=== PATIENT | female | born 1965 | race American Indian/Alaskan Native ===

== ENCOUNTER 2017-03-27 08:49 | Outpatient (CLI) | payer BC ==
[2017-03-27 09:24] LABS: Anion Gap 17 mmol/L; Blood Urea Nitrogen 10 mg/dL (7-17); Carbon Dioxide 29 mmol/L (22-30); Chloride 100.6 mmol/L (98-107); Glucose 96 mg/dL (65-100); Sodium 143 mmol/L (137-145)
== END 2017-03-27 08:50 | disposition home or self-care (01) ==
LOC: LAB 08:49
PROVIDERS: ATTEND Internal Medicine
DX: I10 Essential (primary) hypertension (principal); R73.01 Impaired fasting glucose
CPT/HCPCS: 36415; 80048; 83036

== ENCOUNTER 2017-04-21 10:33 | Outpatient (CLI) | payer BC ==
--- NOTE | 2017-04-22 08:10 | Ultrasound Report ---
ULTRASOUND PELVIC COMPLETE ULTRASOUND TRANSVAGINAL HISTORY: Uterine fibroids. COMPARISON: None. TECHNIQUE: Transabdominal and transvaginal ultrasound with color doppler interrogation. The uterus is anteverted and measures 14.4 x 7.7 x 8.3 cm. There is a large complex uterine mass with a submucosal component in the anterior wall measuring 5.8 x 5.5 cm. Subtle internal calcifications are suspected on the transvaginal images. Trace flow on color Doppler. There is also a smaller subserosal fibroid in the anterior, right lateral wall measuring 2.0 x 2.0 cm. The endometrial stripe is difficult to identify secondary to displacement and the fibroids but appears grossly normal. The ovaries are unremarkable. The right ovary measures 3.3 x 1.7 x 1.4 cm. The left ovary measures 3.1 x 1.8 x 2.1 cm. No pelvic fluid collection. IMPRESSION: Uterine fibroid disease as described above.
== END 2017-04-21 10:34 | disposition home or self-care (01) ==
LOC: US 10:33
DX: D25.2 Subserosal leiomyoma of uterus (principal); D25.0 Submucous leiomyoma of uterus
CPT/HCPCS: 76830; 76856

== ENCOUNTER 2017-05-11 12:43 | Outpatient (CLI) | payer BC ==
--- NOTE | 2017-05-11 15:50 | Mammography Report ---
BILATERAL MAMMOGRAM: FINDINGS: The breasts are almost entirely fat (<25% glandular). No mass, distortion, suspicious calcification, or skin change is seen. No interval change compared to prior exam in April 2016. CAD was utilized. IMPRESSION: Negative mammogram. There is no mammographic evidence of malignancy. RECOMMENDATION: Follow-up per ACS guidelines. BI-RADS CATEGORY: 1 = Negative ACR BI-RADS MAMMOGRAPHIC CODES: 0 = Needs additional imaging evaluation; 1 = Negative; 2 = Benign; 3 = Probably benign; 4 = Suspicious; 5 = Malignant; 6 = Known biopsy-proven malignancy COMMENT: 1. Dense breast tissue, i.e., adenosis, fibrocystic changes, etc., may obscure an underlying neoplasm. 2. Approximately 10% of cancers are not detected with mammography. 3. A negative mammography report should not delay biopsy if a clinically suspicious mass is present. COMMENT: Patient follow-up letters are generated in [employer].
== END 2017-05-11 12:44 | disposition home or self-care (01) ==
LOC: MAMMO 12:43
DX: Z12.31 Encounter for screening mammogram for malignant neoplasm of breast (principal)
CPT/HCPCS: 77067; G0202

== ENCOUNTER 2017-10-22 08:57 | Outpatient (CLI) | payer BC ==
[2017-10-22 09:18] LABS: Basophils % (Auto) 0.4 % (0.0-1.8); Eosinophils # (Auto) 0.1 K/mm3 (0.0-0.4); Eosinophils % (Auto) 2.1 % (0.0-4.3); Hematocrit 41.1 % (30.3-42.9); Hemoglobin 13.3 gm/dl (10.1-14.3); Lymphocytes # (Auto) 2.7 K/mm3 (1.2-5.4); Lymphocytes % (Auto) 45.2 % (13.4-35.0); Mean Corpuscular HGB Conc 32 % (30-34); Mean Corpuscular Volume 80 fl (79-97); Monocytes # (Auto) 0.4 K/mm3 (0.0-0.8); Monocytes % (Auto) 6.4 % (0.0-7.3); Platelet Count 299 K/mm3 (140-440); Red Blood Count 5.11 M/mm3 (3.65-5.03); Red Cell Distribution Width 14.7 % (13.2-15.2)
[2017-10-22 09:19] LABS: Mean Corpuscular Hemoglobin 26 pg (28-32)
[2017-10-22 09:41] LABS: Bacteria,Urine 1+ /HPF (Negative); Bilirubin,Urine NEG (Negative); Blood,Urine NEG (Negative); Color,Urine Yellow (Yellow); Mucus,Urine 2+ /HPF; Protein,Urine <15 mg/dL mg/dL (Negative); WBC,Urine < 1.0 /HPF (0.0-6.0)
[2017-10-22 09:48] LABS: Alanine Aminotransferase 16 units/L (7-56); Albumin 4.4 g/dL (3.9-5); BUN/Creatinine Ratio 17; Blood Urea Nitrogen 15 mg/dL (7-17); Calcium 9.1 mg/dL (8.4-10.2); Chol/HDL Ratio 4.05 %; HDL Cholesterol 58 mg/dL (40-59); Hemolysis Index 3; LDL Cholesterol,Direct 155 mg/dL (50-130)
== END 2017-10-22 08:58 | disposition home or self-care (01) ==
LOC: LAB 08:57
PROVIDERS: ATTEND Internal Medicine
DX: Z13.0 Encounter for screening for diseases of the blood and blood-forming organs and certain disorders involving the immune mechanism (principal); Z13.29 Encounter for screening for other suspected endocrine disorder; I10 Essential (primary) hypertension; E78.2 Mixed hyperlipidemia; R73.01 Impaired fasting glucose
CPT/HCPCS: 36415; 80053; 80061; 81001; 83036; 84443; 85025

== ENCOUNTER 2017-11-03 11:21 | Outpatient (CLI) | payer BC ==
--- NOTE | 2017-11-03 14:17 | XRay Report ---
ROUTINE CHEST, TWO VIEWS: HISTORY: Cardiomegaly. The trachea, heart, mediastinal contour, lung emery and bony thorax are unremarkable. IMPRESSION: Unremarkable chest x-ray.
--- NOTE | 2017-11-03 14:26 | Ultrasound Report ---
ULTRASOUND PELVIC COMPLETE ULTRASOUND TRANSVAGINAL HISTORY: Pelvic and perineal pain. COMPARISON: 04/21/17. TECHNIQUE: Transabdominal and transvaginal ultrasound with color doppler interrogation. FINDINGS: Uterus: The uterus is anteverted. The uterus measures 12.5 x 7.4 x 8.8 cm. A large submucosal fibroid in is identified in the fundal region measuring 6.1 x 5.2 cm. 2 cm intramural fibroids are identified in both the right and left lateral hyde. Normal cervix. Endometrium: The endometrium is poorly imaged secondary to the large fibroid. No obvious endometrial abnormality. Right ovary: 2.9 x 1.9 x 1.9 cm. No focal abnormality. Left ovary: Not visualized. No pelvic fluid or mass is identified. Normal color doppler interrogation. IMPRESSION: Uterine fibroid disease as described above which has not significantly changed since 04/21/17.
== END 2017-11-03 11:22 | disposition home or self-care (01) ==
LOC: US 11:21
PROVIDERS: ATTEND Obstetrics & Gynecology
DX: Z11.59 Encounter for screening for other viral diseases (principal); I10 Essential (primary) hypertension; D25.0 Submucous leiomyoma of uterus; D25.1 Intramural leiomyoma of uterus
CPT/HCPCS: 36415; 71046; 76830; 76856; 86803

== ENCOUNTER 2018-01-28 08:16 | Day surgery (SDC) | payer BC ==
[~2018-01-28 08:16] MED LIST: NACL 0.9% 1000 ML 1,000 ML IV SCH
[2018-01-28] MEDS ORDERED: WATER FOR IRRIG STERILE ONE (09:27)
[2018-01-28] MEDS ORDERED: WATER FOR IRRIG STERILE IR ONE (09:27)
[2018-01-28] MEDS ORDERED: XYLOCAINE 2% INFILTRATI ONE (09:30)
[2018-01-28] MEDS ORDERED: DIPRIVAN 10 MG/ML IV ONE ×2 (09:30)
--- NOTE | 2018-01-28 09:34 | Anesthesia Consultation ---
Anesthesia Consult and Med Hx - Airway Anesthetic Teeth Evaluation: Good ROM Head & Neck: Adequate Mental/Hyoid Distance: Adequate Mallampati Class: Class II Intubation Access Assessment: Probably Good - Pulmonary Exam CTA: Yes - Cardiac Exam Cardiac Exam: No Murmur - Pre-Operative Health Status ASA Pre-Surgery Classification: ASA3 Proposed Anesthetic Plan: MAC - Cardiovascular System Hx Hypertension: Yes - Endocrine Hx Non-Insulin Dependent Diabetes: Yes - Other Systems Hx Obesity: Yes
--- NOTE | 2018-01-28 09:34 | Anesthesia Day of Surgery ---
Anesthesia Day of Surgery - Day of Surgery Patient Examined: Yes Patient H&P Reviewed: Yes Patient is NPO: Yes Beta Blockers: No
--- NOTE | 2018-01-28 09:57 | Post Operative Note ---
Pre-op diagnosis: screening colonsocopy Post-op diagnosis: same (small rectal polyp removed with cold snare; couple small tics) Findings: 1. Rectal polyp, ~4 mm s/p cold snare polypectomy 2. couple small tics Procedure: Colonoscopy with snare polypectomy Anesthesia: MAC Surgeon: HOLLY HERNANDEZ Estimated blood loss: minimal Pathology: list (Jar A - rectal polyp) Specimen disposition: to lab Condition: stable Disposition: same day
--- NOTE | 2018-01-28 09:59 | Operative Report ---
Operative Report Operative Report: Colonoscopy Procedure Note with Polypectomy Date of procedure: 01/28/2018 Endoscopist: Augusto Arceo Pre-op diagnosis: Screening colonoscopy Post-op diagnosis: Small rectal polyp, mild diverticulosis Anesthesia: MAC Complications: No immediate complications Estimated blood loss: minimal Procedure: After consent was obtained, the patient was placed in the left lateral decubitus position. The fujinon colonoscope was inserted into the patient's rectum under direct vision, and advanced to the cecum without difficulty. The patient tolerated the procedure well. The views of the mucosa were good. The quality of prep was good. The patient's vital signs were monitored continuously throughout the procedure. Findings: There was an ~4-5 mm sessile polyp in the rectum. The polyp was removed with cold snare polypectomy and retrieved. There were a couple small diverticula in the left side of the colon. Otherwise, the colon appeared normal. Impression: 1. One small rectal polyp removed with cold snare 2. Mild diverticulosis Recommendations: -follow-up pathology -high fiber diet daily -repeat colonoscopy for surveillance in 5 years
[2018-01-28 10:13] VITALS: BP 111/74
== END 2018-01-28 08:17 | disposition home or self-care (01) ==
LOC: GIO 08:16
PROVIDERS: ATTEND Internal Medicine Gastroenterology
DX: Z12.11 Encounter for screening for malignant neoplasm of colon (principal); K63.5 Polyp of colon; K57.30 Diverticulosis of large intestine without perforation or abscess without bleeding; I10 Essential (primary) hypertension; E11.9 Type 2 diabetes mellitus without complications; E66.9 Obesity, unspecified; Z98.51 Tubal ligation status; Z88.2 Allergy status to sulfonamides
CPT/HCPCS: 45385; 82962; 88305; J2704; J7030

== ENCOUNTER 2018-04-06 14:53 | Outpatient (CLI) | payer BC ==
[2018-04-06 15:43] LABS: BUN/Creatinine Ratio 16; Blood Urea Nitrogen 13 mg/dL (7-17); Calcium 9.7 mg/dL (8.4-10.2); Hemolysis Index 7
== END 2018-04-06 14:54 | disposition home or self-care (01) ==
LOC: LAB 14:53
PROVIDERS: ATTEND Internal Medicine
DX: E11.9 Type 2 diabetes mellitus without complications (principal); I10 Essential (primary) hypertension; E66.9 Obesity, unspecified; Z88.2 Allergy status to sulfonamides
CPT/HCPCS: 36415; 80048; 83036

== ENCOUNTER 2018-05-13 11:02 | Outpatient (CLI) | payer BC ==
--- NOTE | 2018-05-13 14:33 | Mammography Report ---
BILATERAL DIGITAL SCREENING MAMMOGRAM with CAD: 05/13/18 11:02:00 CLINICAL: Routine screening. COMPARISON:05/11/17 FINDINGS: The breasts are almost entirely fatty. No mass, architectural distortion or suspicious calcifications. IMPRESSION: No mammographic evidence of malignancy. BI-RADS CATEGORY: 1 - - Negative RECOMMENDATION: Routine mammographic screening in one year. COMMENT: Patient follow-up letters are generated by our [employer] application.
== END 2018-05-13 11:03 | disposition home or self-care (01) ==
LOC: MAMMO 11:02
DX: Z12.31 Encounter for screening mammogram for malignant neoplasm of breast (principal); I10 Essential (primary) hypertension; E66.9 Obesity, unspecified; Z88.2 Allergy status to sulfonamides
CPT/HCPCS: 77067

== ENCOUNTER 2019-05-17 12:36 | Outpatient (CLI) | payer BC ==
--- NOTE | 2019-05-18 11:51 | Mammography Report ---
DIGITAL SCREENING MAMMOGRAM WITH CAD, 05/17/2019 INDICATION: Routine screening mammography. TECHNIQUE: Digital bilateral 2D mammography was obtained in the craniocaudal and mediolateral obliq ue projections. This examination was interpreted with the benefit of Computer-Aided Detection analysi s. COMPARISON: 05/13/2018 FINDINGS: Breast Density: The breasts are almost entirely fatty. There is no evidence of dominant mass, suspicious calcifications or architectural distortion in eithe r breast. IMPRESSION: No mammographic evidence of malignancy. Follow up recommendation: Routine yearly BI-RADS Category 1: Negative. A "normal" or negative report should not discourage follow up or biopsy of a clinically significant f inding. A written summary of these findings will be mailed to the patient. The patient will be entered into a mammography reporting system which will generate a reminder letter for the patient's next appointmen t at the appropriate interval. The [employer] recommends yearly mammograms starting at age 40 and continuing as l liz as a woman is in good health. Breast MRI is recommended for women with an approximate 20-25% or greater lifetime risk of breast cancer, including women with a strong family history of breast or ova lorenzo cancer or who have been treated for Hodgkin's disease. Signer Name: Donal Quach MD Signed: 05/18/2019 11:46 AM Workstation Name: [id number]
== END 2019-05-17 12:37 | disposition home or self-care (01) ==
LOC: MAMMO 12:36
PROVIDERS: ATTEND Internal Medicine Cardiovascular Disease
DX: Z12.31 Encounter for screening mammogram for malignant neoplasm of breast (principal)
CPT/HCPCS: 77067

== ENCOUNTER 2019-06-13 07:49 | Outpatient (CLI) | payer BC ==
[2019-06-13 08:21] LABS: Basophils % (Auto) 0.4 % (0.0-1.8); Eosinophils # (Auto) 0.1 K/mm3 (0.0-0.4); Eosinophils % (Auto) 2.1 % (0.0-4.3); Hematocrit 39.6 % (30.3-42.9); Hemoglobin 13.1 gm/dl (10.1-14.3); Lymphocytes # (Auto) 2.4 K/mm3 (1.2-5.4); Lymphocytes % (Auto) 43.5 % (13.4-35.0); Mean Corpuscular HGB Conc 33 % (30-34); Mean Corpuscular Volume 81 fl (79-97); Monocytes # (Auto) 0.4 K/mm3 (0.0-0.8); Monocytes % (Auto) 6.4 % (0.0-7.3); Platelet Count 253 K/mm3 (140-440); Red Blood Count 4.88 M/mm3 (3.65-5.03); Red Cell Distribution Width 14.6 % (13.2-15.2)
[2019-06-13 08:38] LABS: Alanine Aminotransferase 18 units/L (7-56); BUN/Creatinine Ratio 28; Blood Urea Nitrogen 22 mg/dL (7-17); Calcium 9.4 mg/dL (8.4-10.2)
[2019-06-13 08:39] LABS: Albumin 4.4 g/dL (3.9-5); Bilirubin,Urine NEG (Negative); Blood,Urine NEG (Negative); Chol/HDL Ratio 4.36 %; Color,Urine Yellow (Yellow); HDL Cholesterol 60 mg/dL (40-59); Hemolysis Index 0; LDL Cholesterol,Direct 190 mg/dL (50-130); Mucus,Urine FEW /HPF; Protein,Urine <15 mg/dL mg/dL (Negative); Urobilinogen,Urine < 2.0 mg/dL (<2.0)
== END 2019-06-13 07:50 | disposition home or self-care (01) ==
LOC: LAB 07:49
PROVIDERS: ATTEND Internal Medicine
DX: Z13.0 Encounter for screening for diseases of the blood and blood-forming organs and certain disorders involving the immune mechanism (principal); Z13.29 Encounter for screening for other suspected endocrine disorder; I10 Essential (primary) hypertension; R73.01 Impaired fasting glucose; E78.2 Mixed hyperlipidemia; E66.9 Obesity, unspecified
CPT/HCPCS: 36415; 80053; 80061; 81001; 83036; 84443; 85025

== ENCOUNTER 2019-11-11 07:41 | Outpatient (CLI) | payer BC ==
[2019-11-11 08:41] LABS: Alanine Aminotransferase 18 units/L (7-56); Albumin 4.2 g/dL (3.9-5); BUN/Creatinine Ratio 17; Blood Urea Nitrogen 15 mg/dL (7-17); Calcium 9.4 mg/dL (8.4-10.2); Hemolysis Index 5; LDL Cholesterol,Direct 154 mg/dL (50-130)
[2019-11-11 11:25] LABS: HDL Cholesterol 46 mg/dL (40-59)
== END 2019-11-11 07:42 | disposition home or self-care (01) ==
LOC: LAB 07:41
PROVIDERS: ATTEND Internal Medicine
DX: E78.2 Mixed hyperlipidemia (principal); I10 Essential (primary) hypertension
CPT/HCPCS: 36415; 80053; 80061

== ENCOUNTER 2019-11-18 07:42 | Outpatient (CLI) | payer BC ==
--- NOTE | 2019-11-18 08:34 | XRay Report ---
RIGHT FOOT 3 VIEWS INDICATION / CLINICAL INFORMATION: G60.8/ NEUROPATHIES COMPARISON: None available. FINDINGS: BONES and JOINT(S): No acute fracture or subluxation. No significant arthritis. SOFT TISSUES: No significant abnormality. ADDITIONAL FINDINGS: None. IMPRESSION: 1. No acute findings. Signer Name: Ray Barney MD Signed: 11/18/2019 8:29 AM Workstation Name: [id number]
== END 2019-11-18 07:43 | disposition home or self-care (01) ==
LOC: XRAY 07:42
PROVIDERS: ATTEND Podiatrist Foot & Ankle Surgery
DX: G60.8 Other hereditary and idiopathic neuropathies (principal)

== ENCOUNTER 2020-06-12 15:01 | Outpatient (CLI) | payer BC ==
[2020-06-14 06:55] LABS: Chol/HDL Ratio 2.21 %
--- NOTE | 2020-06-15 08:54 | Mammography Report ---
DIGITAL SCREENING MAMMOGRAM WITH CAD, 06/15/2020 INDICATION: Routine screening mammography. ROUTINE SCREENING TECHNIQUE: Digital bilateral 2D mammography was obtained in the craniocaudal and mediolateral obliq ue projections. This examination was interpreted with the benefit of Computer-Aided Detection analysi s. COMPARISON: 05/17/2019 FINDINGS: Breast Density: The breasts are almost entirely fatty. There is no evidence of dominant mass, suspicious calcifications or architectural distortion in eithe r breast. IMPRESSION: No evidence of malignancy Follow up recommendation: Routine yearly BI-RADS Category 1: Negative. A "normal" or negative report should not discourage follow up or biopsy of a clinically significant f inding. A written summary of these findings will be mailed to the patient. The patient will be entered into a mammography reporting system which will generate a reminder letter for the patient's next appointmen t at the appropriate interval. The [employer] recommends yearly mammograms starting at age 40 and continuing as l liz as a woman is in good health. Breast MRI is recommended for women with an approximate 20-25% or greater lifetime risk of breast cancer, including women with a strong family history of breast or ova lorenzo cancer or who have been treated for Hodgkin's disease. Signer Name: Stanley Akins MD Signed: 06/15/2020 8:50 AM Workstation Name: [id number]
== END 2020-06-13 15:02 | disposition home or self-care (01) ==
LOC: LAB 15:01
PROVIDERS: ATTEND Internal Medicine
DX: Z12.31 Encounter for screening mammogram for malignant neoplasm of breast (principal); E78.2 Mixed hyperlipidemia
CPT/HCPCS: 36415; 77067; 80061

== ENCOUNTER 2020-08-25 12:38 | Emergency (ER) | payer BC ==
[2020-08-25 12:52] VITALS: BP 127/81
--- NOTE | 2020-08-25 13:45 | Emergency Department Report ---
ED General Adult HPI - General Chief complaint: Animal Bite Stated complaint: LT THIGH INSECT BITE Time Seen by Provider: 08/25/20 13:05 Source: patient Mode of arrival: Ambulatory Limitations: No Limitations - History of Present Illness Initial comments: 54-year-old -[place] female patient presents with complaints of left upper thigh insect bite x yesterday. History of hypertension and prediabetes. Rates her pain as a 4/10 in severity and states there is some itching that has been relieved with cortisone. No fever/chills/sweats or difficulty moving her leg. - Related Data Previous Rx's Medication Instructions Recorded Last Taken Type Doxycycline Monohydrate 100 mg PO BID 7 Days #14 capsule 08/25/20 Unknown Rx Triamcinolone Acetonide 15 gm TP TID PRN #1 oint...g. 08/25/20 Unknown Rx Allergies Allergy/AdvReac Type Severity Reaction Status Date / Time Sulfa (Sulfonamide Allergy Rash Unverified 01/28/16 08:45 Antibiotics) ED Review of Systems ROS: Stated complaint: LT THIGH INSECT BITE Other details as noted in HPI Constitutional: denies: chills, fever Cardiovascular: denies: chest pain Skin: rash, change in color, pruritus Neurological: denies: numbness, paresthesias, abnormal gait ED Past Medical Hx - Past Medical History Hx Hypertension: Yes Hx Diabetes: Yes - Social History Smoking Status: Never Smoker - Medications Home Medications: Home Medications Medication Instructions Recorded Confirmed Last Taken Type Doxycycline Monohydrate 100 mg PO BID 7 Days #14 capsule 08/25/20 Unknown Rx Triamcinolone Acetonide 15 gm TP TID PRN #1 oint...g. 08/25/20 Unknown Rx ED Physical Exam - General Limitations: No Limitations General appearance: alert, in no apparent distress - Head Head exam: Present: atraumatic, normocephalic - Eye Eye exam: Present: normal appearance - Neck Neck exam: Present: full ROM - Respiratory Respiratory exam: Absent: respiratory distress - Cardiovascular Cardiovascular Exam: Present: regular rate - Back Exam Back exam: Present: full ROM - Neurological Exam Neurological exam: Present: alert, oriented X3, normal gait - Psychiatric Psychiatric exam: Present: normal affect, normal mood - Skin Skin exam: Present: warm, dry, intact, other (Approximately 7 cm round indurated erythemic area noted to the left lateral upper thigh without fluctuance; area is mildly tender to palpation) ED Course Vital Signs 08/25/20 12:51 Temperature 98.2 F Pulse Rate 73 Respiratory 18 Rate Blood Pressure 127/81 O2 Sat by Pulse 99 Oximetry ED Medical Decision Making - Medical Decision Making 54-year-old -[place] female patient presents with complaints of left upper thigh insect bite x yesterday. History of hypertension and prediabetes. Rates her pain as a 4/10 in severity and states there is some itching that has been relieved with cortisone. No fever/chills/sweats or difficulty moving her leg. Will treat for insect bite and possible cellulitis. Patient to follow-up with primary care doctor in 3 to 5 days. She is well-appearing, her vitals are normal, she is stable for discharge home. Discussed signs and symptoms that should prompt immediate return to the emergency department in detail with patient who verbalized understanding. Critical care attestation.: If time is entered above; I have spent that time in minutes in the direct care of this critically ill patient, excluding procedure time. ED Disposition Clinical Impression: Insect bite Qualifiers: Encounter type: initial encounter Site of insect bite: thigh Laterality: left Qualified Code(s): S70.362A - Insect bite (nonvenomous), left thigh, initial encounter; W57.XXXA - Bitten or stung by nonvenomous insect and other nonvenomous arthropods, initial encounter Disposition: DC-01 TO HOME OR SELFCARE Is pt being admited?: No Condition: Stable Instructions: Insect Bite, Adult, [id number], Cellulitis, Adult Prescriptions: Doxycycline Monohydrate 100 mg PO BID 7 Days #14 capsule Triamcinolone Acetonide 15 gm TP TID PRN #1 oint...g. PRN Reason: Itching Referrals: PRIMARY CARE, [Primary Care Provider] - 3-5 Days
== END 2020-08-25 14:00 | disposition home or self-care (01) ==
LOC: ED 12:38
DX: S71.152A Open bite, left thigh, initial encounter (principal); I10 Essential (primary) hypertension; E11.9 Type 2 diabetes mellitus without complications; Z88.2 Allergy status to sulfonamides; Z79.899 Other long term (current) drug therapy; W57.XXXA Bitten or stung by nonvenomous insect and other nonvenomous arthropods, initial encounter; Y93.89 Activity, other specified; Y92.89 Other specified places as the place of occurrence of the external cause; Y99.8 Other external cause status
CPT/HCPCS: 99281

== ENCOUNTER 2021-04-16 11:06 | Outpatient (CLI) | payer BC ==
[2021-04-16 11:36] LABS: Basophils % (Auto) 0.6 % (0.0-1.8); Eosinophils # (Auto) 0.1 K/mm3 (0.0-0.4); Eosinophils % (Auto) 2.2 % (0.0-4.3); Hematocrit 39.7 % (30.3-42.9); Hemoglobin 13.1 gm/dl (10.1-14.3); Lymphocytes # (Auto) 2.4 K/mm3 (1.2-5.4); Lymphocytes % (Auto) 42.1 % (13.4-35.0); Mean Corpuscular HGB Conc 33 % (30-34); Mean Corpuscular Volume 81 fl (79-97); Monocytes # (Auto) 0.3 K/mm3 (0.0-0.8); Platelet Count 263 K/mm3 (140-440); Red Blood Count 4.87 M/mm3 (3.65-5.03); Red Cell Distribution Width 14.3 % (13.2-15.2)
[2021-04-16 11:52] LABS: Alanine Aminotransferase 18 units/L (7-56); Albumin 4.1 g/dL (3.9-5); BUN/Creatinine Ratio 14; Blood Urea Nitrogen 11 mg/dL (7-17); Calcium 9.4 mg/dL (8.4-10.2); Hemolysis Index 14
[2021-04-16 13:58] LABS: Microalbumin/Creatinine Ratio 5.2 ug/mg
[2021-04-16 15:06] LABS: Chol/HDL Ratio 2.26 %; HDL Cholesterol 57 mg/dL (40-59); LDL Cholesterol,Direct 64 mg/dL (50-130)
== END 2021-04-16 11:07 | disposition home or self-care (01) ==
LOC: LAB 11:06
PROVIDERS: ATTEND Internal Medicine
DX: Z13.0 Encounter for screening for diseases of the blood and blood-forming organs and certain disorders involving the immune mechanism (principal); I10 Essential (primary) hypertension; E78.2 Mixed hyperlipidemia; R73.01 Impaired fasting glucose
CPT/HCPCS: 36415; 80053; 80061; 82043; 82270; 83036; 85025

== ENCOUNTER 2021-06-13 10:12 | Outpatient (CLI) | payer BC ==
--- NOTE | 2021-06-14 08:41 | Mammography Report ---
DIGITAL SCREENING MAMMOGRAM WITH CAD, 06/13/2021 CLINICAL INFORMATION / INDICATION: Routine screening mammography. TECHNIQUE: Digital bilateral 2D mammography was obtained in the craniocaudal and mediolateral obliqu e projections. This examination was interpreted with the benefit of Computer-Aided Detection analysis . COMPARISON: 06/12/2020, 05/17/2019 FINDINGS: Breast Density: The breasts are almost entirely fatty. No dominant mass, suspicious calcifications, or architectural distortion in either breast. There has been no significant interval change. IMPRESSION: No mammographic evidence of malignancy. Follow up recommendation: Routine yearly BI-RADS Category 1: Negative. A "normal" or negative report should not discourage follow up or biopsy of a clinically significant f inding. A written summary of these findings will be mailed to the patient. The patient will be entered into a mammography reporting system which will generate a reminder letter for the patient's next appointmen t at the appropriate interval. The [employer] recommends yearly mammograms starting at age 40 and continuing as l liz as a woman is in good health. Breast MRI is recommended for women with an approximate 20-25% or greater lifetime risk of breast cancer, including women with a strong family history of breast or ova lorenzo cancer or who have been treated for Hodgkin's disease. Signer Name: Ray Barney MD Signed: 06/14/2021 8:37 AM Workstation Name: [id number]
== END 2021-06-13 10:13 | disposition home or self-care (01) ==
LOC: MAMMO 10:12
PROVIDERS: ATTEND Internal Medicine
DX: Z12.31 Encounter for screening mammogram for malignant neoplasm of breast (principal)
CPT/HCPCS: 77067

== ENCOUNTER 2022-01-09 08:55 | Outpatient (CLI) | payer BC ==
[2022-01-09 11:31] LABS: Hematocrit 38.6 % (30.3-42.9); Hemoglobin 12.7 gm/dl (10.1-14.3); Mean Corpuscular HGB Conc 33 % (30-34); Mean Corpuscular Volume 82 fl (79-97); Platelet Count 288 K/mm3 (140-440); Red Blood Count 4.73 M/mm3 (3.65-5.03); Red Cell Distribution Width 14.4 % (13.2-15.2)
[2022-01-09 11:34] LABS: Alanine Aminotransferase 21 units/L (7-56); Albumin 4.5 g/dL (3.9-5); BUN/Creatinine Ratio 14; Blood Urea Nitrogen 11 mg/dL (7-17); Calcium 9.2 mg/dL (8.4-10.2); Chol/HDL Ratio 4.57 %; HDL Cholesterol 54 mg/dL (40-59); Hemolysis Index 3; LDL Cholesterol,Direct 163 mg/dL (50-130)
[2022-01-09 11:44] LABS: Basophils % (Auto) 0.7 % (0.0-1.8); Eosinophils # (Auto) 0.2 K/mm3 (0.0-0.4); Eosinophils % (Auto) 2.8 % (0.0-4.3); Lymphocytes # (Auto) 2.3 K/mm3 (1.2-5.4); Lymphocytes % (Auto) 41.3 % (13.4-35.0); Monocytes # (Auto) 0.3 K/mm3 (0.0-0.8); Monocytes % (Auto) 5.6 % (0.0-7.3)
[2022-01-09 12:38] LABS: Bacteria,Urine 1+ /HPF (Negative); Bilirubin,Urine NEG (Negative); Blood,Urine NEG (Negative); Color,Urine Yellow (Yellow); Mucus,Urine 3+ /HPF; Protein,Urine <15 mg/dL mg/dL (Negative); Urobilinogen,Urine < 2.0 mg/dL (<2.0)
[2022-01-09 12:59] LABS: Creatinine,Urine 342.5 mg/dL (0.1-20.0); Microalbumin/Creatinine Ratio 3.5 ug/mg
== END 2022-01-09 08:56 | disposition home or self-care (01) ==
LOC: LAB 08:55
PROVIDERS: ATTEND Internal Medicine
DX: Z13.0 Encounter for screening for diseases of the blood and blood-forming organs and certain disorders involving the immune mechanism (principal); I10 Essential (primary) hypertension; E78.2 Mixed hyperlipidemia; R73.01 Impaired fasting glucose
CPT/HCPCS: 36415; 80053; 80061; 81001; 82043; 83036; 85025

== ENCOUNTER 2022-02-04 10:11 | Outpatient (CLI) | payer BC ==
[2022-02-04 11:20] LABS: Blood Urea Nitrogen 19 mg/dL (7-17)
--- NOTE | 2022-02-04 12:04 | XRay Report ---
Right foot 3 views INDICATION: Right foot pain COMPARISON: November 18, 2019 FINDINGS: MTP joints and IP joints appear normal. Midfoot alignment appears normal. Calcaneal spurrin g is seen. IMPRESSION: Calcaneal spurring. No acute findings. Signer Name: Roosevelt Quispe MD Signed: 02/04/2022 11:56 AM Workstation Name: [id number]
--- NOTE | 2022-02-04 14:54 | Cat Scan Report ---
CT ABDOMEN AND PELVIS WITHOUT AND WITH INTRAVENOUS CONTRAST INDICATION / CLINICAL INFORMATION: R10.10 PAIN OF UPPER ABDOMEN. RIGHT FLANK PAIN. TECHNIQUE: 100 cc Omnipaque [address] scans at this location are performed using CT d ose reduction for ALARA by means of automated exposure control. COMPARISON: None available. FINDINGS: ABDOMEN: Noncontrast images demonstrate no abnormal calcifications. There is symmetric renal excretio n postcontrast. There is no evidence of renal mass or hydronephrosis. There is a minimal cortical sca rring in the lower pole of the left kidney posteriorly. The liver, spleen, gallbladder, bile ducts, pancreas, adrenal glands and bowel are normal. No adenopa thy is present. No acute vascular abnormality is seen. The lung bases are clear. PELVIS: The uterus is enlarged and contains multiple fibroids, the largest of which measures approxim ately 5 cm in the left uterine body. There is no evidence of adnexal mass or free fluid. The distal u reters and urinary bladder are normal. A normal appendix is present. There are a few scattered left colonic diverticula without acute inflam mation. I do not identify a hernia. There is mild spondylosis. IMPRESSION: 1. No acute intra-abdominal disease is identified. 2. Enlarged uterus containing multiple fibroids, the largest of which measures approximately 5 cm. Signer Name: Zak Castanon MD Signed: 02/04/2022 2:50 PM Workstation Name: [id number]
== END 2022-02-04 10:12 | disposition home or self-care (01) ==
LOC: CT 10:11
PROVIDERS: ATTEND Internal Medicine
DX: D25.9 Leiomyoma of uterus, unspecified (principal); G60.8 Other hereditary and idiopathic neuropathies; M79.9 Soft tissue disorder, unspecified; N85.2 Hypertrophy of uterus; K57.30 Diverticulosis of large intestine without perforation or abscess without bleeding; M77.31 Calcaneal spur, right foot
CPT/HCPCS: 36415; 73630; 74178; 82565; 84520; Q9967